=== PATIENT | female | born 1980 | race Two or more races ===

== ENCOUNTER 2024-09-01 09:15 | Inpatient (IN) | payer OTHER ==
[~2024-09-01] VITALS: Ht 162.6 cm; Wt 86.2 kg
[~2024-09-01 09:15] MED LIST: IMODIUM A-D2 MG PO; PEPCID40 MG PO; ZOFRAN4 MG PO
[2024-09-01 10:44] VITALS: BP 129/83
[2024-09-01 10:46] LABS: URINE APPEARANCE Clear; URINE BILIRRUBIN Negative (NEGATIVE); URINE BLOOD Small; URINE COLOR Yellow; URINE GLUCOSE Negative (NEGATIVE); URINE KETONE Negative (NEGATIVE); URINE LEUKOCYTE Moderate; URINE NITRATE Negative; URINE PROTEIN Trace (NEGATIVE); URINE UROBILINOGEN 0.2 E.U./dl
[2024-09-01 10:49] LABS: URINE BACTERIA 1605.5 uL (0.0-1933); URINE EPITHELIAL CELLS 46.3 uL (0.0-38.8); URINE RBC 10.7 uL (0.0-20.8); URINE WBC 91.1 uL (0.0-23.2)
[2024-09-01 10:52] LABS: URINE CAST 0.29 uL (0.0-1.40)
[2024-09-01 10:57] LABS: BASO % 0.6 % (0.1-1.2); EOS # 0.12 (0.04-0.54); EOS % 1.5 % (0.7-7.0); HEMOGLOBIN 10.6 g/dL (11.2-15.7); LYMPH # 2.03 (1.18-3.74); LYMPH % 25.8 % (19.3-53.1); MEAN CORPUSCULAR HEMOGLOBIN 21.8 pg (25.6-32.2); MONO # 0.44 (0.24-0.82); MONO % 5.6 % (4.7-12.5); NEUT # 5.21 (1.56-6.13); NEUT % 66.2 % (34.0-71.1); PLATELET COUNT 355 K/uL (163-369); RED BLOOD COUNT 4.86 M/uL (3.93-5.22); RED CELL DISTRIBUTION WIDTH 17.1 % (11.6-14.4)
[2024-09-01 11:11] LABS: INR 1.04; PARTIAL THROMBOPLASTIN TIME 29.5 SECONDS (22.0-34.0); PROTHROMBIN TIME 11.3 SECONDS (9.0-11.5)
[2024-09-01 12:01] LABS: ALBUMIN 3.7 gm/dL (3.4-5.0); BILIRUBIN TOTAL 0.34 mg/dL (0.3-1.2); CALCIUM 9.2 mg/dL (8.5-10.1); CREATININE SERUM 0.75 mg/dL (0.55-1.02); GFR 83.19; GLOBULINA 3.5 G/DL (2.4-3.5); POTASSIUM 4.13 mEq/L (3.5-5.1); TOTAL PROTEIN 7.2 gm/dL (6.4-8.2)
[2024-09-06] MEDS ORDERED: METRONIDAZOLE/SODIUM CHLORIDE 500 MG/100 ML PIGGYBACK IV NR (05:00)
[2024-09-13] MEDS ORDERED: METRONIDAZOLE/SODIUM CHLORIDE 500 MG/100 ML PIGGYBACK IV SCH (09:15)
[2024-09-13] MEDS ORDERED: METRONIDAZOLE/SODIUM CHLORIDE 500 MG/100 ML PIGGYBACK IV ONE (11:21)
[2024-09-13] MEDS ORDERED: CEFAZOLIN SODIUM 1,000 MG VIAL IV SCH (13:45)
[2024-09-13] MEDS ORDERED: POVIDONE-IODINE 118 ML BOTT TOP ONE (14:24)
[2024-09-13] MEDS ORDERED: ISOPROPYL ALCOHOL 30 ML OUNCE TOP ONE (16:15)
[2024-09-13] MEDS ORDERED: SUGAMMADEX SODIUM 200 MG/2 ML VIAL IV ONE (16:47)
[2024-09-13] MEDS ORDERED: RINGERS SOLUTION,LACTATED 1,000 ML IV SCH (17:30)
[2024-09-13] MEDS ORDERED: KETOROLAC TROMETHAMINE 30 MG VIAL IV SCH (17:30)
[2024-09-13] MEDS ORDERED: PROMETHAZINE HCL 50 MG/ML AMPUL IM PRN (17:30)
[2024-09-13] MEDS ORDERED: MEPERIDINE HCL/PF 50 MG/ML VIAL IM PRN (17:30)
[2024-09-13] MEDS ORDERED: KETOROLAC TROMETHAMINE 30 MG VIAL ONE (20:59)
[2024-09-13 22:15] VITALS: BP 116/76
[2024-09-13] MEDS ORDERED: MORPHINE SULFATE 4 MG/ML CARTRIDGE IV PRN (22:30)
[2024-09-13 23:53] VITALS: BP 115/67
[2024-09-14] MEDS ORDERED: OxyCODONE HCL 5 MG TABLET (ROXICODONE) PO PRN (07:00)
[2024-09-14] MEDS ORDERED: DOCUSATE SODIUM 100MG CAP PO SCH (09:00)
[2024-09-14 09:01] VITALS: BP 115/72
[2024-09-14 09:19] LABS: BASO % 0.2 % (0.1-1.2); EOS # 0.03 (0.04-0.54); EOS % 0.3 % (0.7-7.0); HEMATOCRIT 29.8 % (34.1-44.9); HEMOGLOBIN 9.2 g/dL (11.2-15.7); LYMPH # 1.21 (1.18-3.74); LYMPH % 10.1 % (19.3-53.1); MEAN CORPUSCULAR HEMOGLOBIN 22.6 pg (25.6-32.2); MONO # 0.59 (0.24-0.82); MONO % 4.9 % (4.7-12.5); NEUT # 10.07 (1.56-6.13); NEUT % 84.2 % (34.0-71.1); PLATELET COUNT 272 K/uL (163-369); RED BLOOD COUNT 4.07 M/uL (3.93-5.22); RED CELL DISTRIBUTION WIDTH 19.1 % (11.6-14.4)
[2024-09-14] MEDS ORDERED: IBUprofen 800 MG TABLET PO SCH (10:00)
[2024-09-14 13:57] VITALS: BP 112/70
[2024-09-14 15:37] VITALS: BP 101/67
[2024-09-14 20:00] VITALS: BP 103/70
[2024-09-14 20:40] LABS: URINE APPEARANCE Clear; URINE BILIRRUBIN Negative (NEGATIVE); URINE BLOOD Large; URINE COLOR Yellow; URINE EPITHELIAL CELLS 9.4 uL (0.0-38.8); URINE GLUCOSE Negative (NEGATIVE); URINE KETONE Negative (NEGATIVE); URINE LEUKOCYTE Small; URINE NITRATE Negative; URINE PROTEIN 30 (NEGATIVE); URINE RBC 166.8 uL (0.0-20.8); URINE WBC 50.9 uL (0.0-23.2)
[2024-09-14 20:40] LABS: BASO % 0.4 % (0.1-1.2); EOS # 0.06 (0.04-0.54); EOS % 0.4 % (0.7-7.0); HEMATOCRIT 29.5 % (34.1-44.9); HEMOGLOBIN 9.2 g/dL (11.2-15.7); LYMPH # 1.49 (1.18-3.74); LYMPH % 10.6 % (19.3-53.1); MEAN CORPUSCULAR HEMOGLOBIN 22.6 pg (25.6-32.2); MONO # 0.82 (0.24-0.82); MONO % 5.8 % (4.7-12.5); NEUT # 11.58 (1.56-6.13); NEUT % 82.4 % (34.0-71.1); PLATELET COUNT 255 K/uL (163-369); RED BLOOD COUNT 4.07 M/uL (3.93-5.22); RED CELL DISTRIBUTION WIDTH 19.5 % (11.6-14.4)
[2024-09-14 21:06] LABS: ALBUMIN 3.3 gm/dL (3.4-5.0); BILIRUBIN TOTAL 0.55 mg/dL (0.3-1.2); CALCIUM 8.8 mg/dL (8.5-10.1); CREATININE SERUM 0.64 mg/dL (0.55-1.02); GFR 99.9; GLOBULINA 2.9 G/DL (2.4-3.5); POTASSIUM 3.59 mEq/L (3.5-5.1); TOTAL PROTEIN 6.2 gm/dL (6.4-8.2)
[2024-09-15] VITALS: BP 100/65
[2024-09-15 08:22] VITALS: BP 111/73
[2024-09-15 16:00] VITALS: BP 106/70
== END 2024-09-15 15:36 | disposition home or self-care (01) | DRG 743 ==
LOC: SURH 09-06 09:15 → O/R 09-13 12:17 → OB/GYN 09-13 19:44
PROVIDERS: ADMIT Obstetrics & Gynecology; ATTEND Obstetrics & Gynecology
PROC: 0UT74ZZ Resection of Bilateral Fallopian Tubes, Percutaneous Endoscopic Approach (ICD-10-PCS; 2024-09-13)
PROC: 0UN74ZZ Release Bilateral Fallopian Tubes, Percutaneous Endoscopic Approach (ICD-10-PCS; 2024-09-13)
PROC: 0UN24ZZ Release Bilateral Ovaries, Percutaneous Endoscopic Approach (ICD-10-PCS; 2024-09-13)
PROC: 0DNW4ZZ Release Peritoneum, Percutaneous Endoscopic Approach (ICD-10-PCS; 2024-09-13)
PROC: 0UT94ZZ Resection of Uterus, Percutaneous Endoscopic Approach (ICD-10-PCS; principal; 2024-09-13 07:00)
DX: D25.1 Intramural leiomyoma of uterus (principal); N72 Inflammatory disease of cervix uteri; N80.329 Endometriosis of the posterior cul-de-sac, unspecified depth; N80.A0 Endometriosis of bladder, unspecified depth; N80.30 Endometriosis of pelvic peritoneum, unspecified